=== PATIENT | female | born 1970 | race Caucasian/White ===

== ENCOUNTER 2018-04-04 11:14 | Emergency (ER) | payer OTHER ==
[~2018-04-04] VITALS: Ht 142.2 cm; Wt 75.0 kg
[2018-04-04 11:23] VITALS: BP 113/71; PULSE 90; RESP 16; TEMP 97.8; O2SAT 98
--- NOTE | 2018-04-04 13:38 | RADRPT ---
EXAM DATE: 04/04/2018 1:34 PM EDT AGE/SEX: 47 years / Female INDICATIONS: Right ankle pain, fall. CLINICAL DATA: This is the patient's initial encounter. Patient reports that signs and symptoms have been present for 3 days and indicates a pain score of 10/10. MEDICAL/SURGICAL HISTORY: None. None. COMPARISON: No prior exams available for comparison. FINDINGS: Bony structures are intact and in normal alignment. Joints are intact without dislocation or signifi cant arthropathy. Osseous density is normal. Soft tissues are unremarkable. No radiopaque foreign bodies seen. CONCLUSION: Negative for fracture or dislocation. Followup in 7-10 days is suggested if symptoms persist. Electronically signed by: Raymond Lisa MD 04/04/2018 1:37 PM EDT
--- NOTE | 2018-04-04 13:52 | PD ---
HPI Chief Complaint: Injury Time Seen by Provider: 12:44 Travel History International Travel<30 days: No Contact w/Intl Traveler<30days: No Traveled to known affect area: No History of Present Illness HPI 47-year-old female presents to the emergency room for evaluation of right medial ankle pain and swelling for the past 3 days. Patient was coming down from a ladder when her small dog got in the way. To avoid hitting him, she fell and landed on bilateral ankles. She had immediate pain in the both but left was worse than right. She went to [facility] urgent care and had x-rays of both ankles that showed a significant fracture in the left and unremarkable right ankle. Patient was told to follow-up with a primary care physician or orthopedic physician for repeat x-ray because the urgent care physician stated that she might have an occult fracture. She has been able to use the right foot ambulate but with significant pain. She was placed in a splint on the left and discharged with pain medication that she has now run out of. She states she called an orthopedic physician but they cannot get her in until April so they recommended she come to the emergency room. Patient denies paresthesias. [facility] Past Medical History Medical History: Unable to Obtain ?: Unknown Past Surgical History Surgical History: Unable to Obtain Social History Alcohol Use: Yes Tobacco Use: Yes Substance Use: No Allergies-Medications (Allergen,Severity, Reaction): Coded Allergies: No Known Allergies (Unverified , 04/04/18) Review of Systems Except as stated in HPI: all other systems reviewed are Neg Physical Exam Narrative GENERAL: Well-nourished, well-developed female no acute distress. Afebrile. SKIN: Focused skin assessment warm/dry. Moderate ecchymosis of right medial ankle. Left ankle is splinted in a soft air boot. HEAD: Normocephalic. EYES: No scleral icterus. No injection or drainage. NECK: Supple, trachea midline. No JVD or lymphadenopathy. CARDIOVASCULAR: Regular rate and rhythm without murmurs, gallops, or rubs. RESPIRATORY: Breath sounds equal bilaterally. No accessory muscle use. MUSCULOSKELETAL: No cyanosis. Tenderness to palpation of the right medial malleolus. Moderate edema of the right foot. No bony tenderness to palpation of the foot. Negative squeeze test. 2+ dorsalis pedis pulse. Limited range of motion secondary to pain. Data Data Last Documented VS Vital Signs Date Time Temp Pulse Resp B/P (MAP) Pulse Ox O2 Delivery O2 Flow Rate FiO2 04/04/18 12:50 16 04/04/18 11:23 97.8 90 113/71 (85) 98 Orders Orders Ankle, Complete ([id number]) (04/04/18 ) MDM Medical Decision Making Medical Screen Exam Complete: Yes Emergency Medical Condition: Yes Medical Record Reviewed: Yes Differential Diagnosis Sprain, strain, contusion, fracture, dislocation, dependent edema Narrative Course 47-year-old female presents to the emergency room for evaluation of right medial ankle pain and swelling for the past 3 days after falling. She went to an urgent care and was diagnosed a fracture on the left. They took x-ray of the right but told her to have it repeated in a few days if symptoms persist. Physical exam reveals moderate 2+ pitting edema of the right foot. 2+ dorsalis pedis pulse. Limited range of motion secondary to pain. Significant tenderness palpation of the medial malleolus. Left foot and ankle are in air boot, prescribed by urgent care. X-ray of the right ankle is negative. Patient told to follow-up as planned with a orthopedic physician for management of left ankle and return to the emergency room for worsening symptoms. She understands and agrees to plan. Diagnosis Primary Impression: Right ankle sprain Qualified Codes: S93.401A - Sprain of unspecified ligament of right ankle, initial encounter Referrals: Primary Care Physician Additional Instructions: Rest and drink plenty of fluids. Bruce as directed, as needed for pain. Do not drink alcohol or drive while taking this medication. Follow-up with a primary care physician. Return to the emergency room for worsening symptoms. Disposition: 01 DISCHARGE HOME Condition: Stable Caridad Elizondo Apr 04, 2018 13:52
[2018-04-04] MEDS ORDERED: HYDR-3516 PO (13:53)
== END 2018-04-04 14:08 | disposition home or self-care (01) ==
LOC: NEPK 11:14
DX: S93.401A Sprain of unspecified ligament of right ankle, initial encounter (principal); Z72.0 Tobacco use; W11.XXXA Fall on and from ladder, initial encounter
CPT/HCPCS: 73610; 99283